=== PATIENT | female | born 1960 | race Caucasian/White ===

== ENCOUNTER → 2023-07-29 12:55 | Outpatient (CLI) | payer OTHER, SELFPAY ==
--- NOTE | 2023-07-29 | DI.MRI.S_ITS ---
PROCEDURE: MR SHOULDER RT WO CON INDICATIONS: ROTATOR CUFF SYNDROM OF RT SHOULDER/RULE OUT TEAR TECHNIQUE: Noncontrast oblique coronal T2 fast spin echo with fat saturation, oblique sagittal T1 spin echo and T2 fast spin echo with fat saturation, axial T1 spin echo and T2 fast spin echo with fat saturation through the shoulder. COMPARISON: [facility], CR, XR SHOULDER 1 VIEW RIGHT, 07/14/2023, 14:06. FINDINGS: Image quality: Degraded by motion artifact. Rotator cuff: Mild T2 signal elevation diffusely throughout the supraspinatus and infraspinatus tendons at the humeral insertion sites extending to the musculotendinous junction, indicating tendinopathy. Superimposed low-grade bursal surface tearing of the mid and posterior supraspinatus as well as the anterior infraspinatus tendons at the humeral insertion sites. High-grade intrasubstance and articular surface tearing of the posterior infraspinatus tendon at the humeral insertion site extending to the musculotendinous junction. Subscapularis and teres minor tendons are intact. No rotator cuff atrophy. Bones and bursae: No bone marrow contusions or fractures. Moderate glenohumeral and acromioclavicular joint degeneration. The acromion demonstrates conventional anatomy, without an os acromiale. No pathologic subacromial-subdeltoid or subcoracoid bursal fluid is present. Capsule and soft tissues: Diffuse degenerative fraying of the glenoid labrum is present. The long head of the biceps tendon demonstrates normal location and morphology. The rotator interval appears normal, without fibrosis. The coracohumeral ligament is normal in thickness. IMPRESSION: 1. Acromioclavicular and glenohumeral joint osteoarthritis. 2. Partial-thickness tearing of the supraspinatus and infraspinatus tendons as described above. 3. Degenerative glenoid labral fraying. Dictated by: Danielle Grossman M.D. on 07/29/2023 at 14:13 Approved by: Danielle Grossman M.D. on 07/29/2023 at 14:15
== END ==
PROVIDERS: Referring Provider Orthopaedic Surgery; Visit Provider Orthopaedic Surgery
DX: M75.111 Incomplete rotator cuff tear or rupture of right shoulder, not specified as traumatic (principal); M19.011 Primary osteoarthritis, right shoulder
CPT/HCPCS: 73221

== ENCOUNTER → 2025-02-05 11:55 | Outpatient (CLI) | payer MEDICARE, OTHER, SELFPAY ==
--- NOTE | 2025-02-05 12:00 | DI.MRI.S_ITS ---
PROCEDURE: MR SHOULDER RT WO CON INDICATIONS: ROTATOR CUFF TEAR OR RUPTURE RT SHOULDER TECHNIQUE: Noncontrast oblique coronal T2 fast spin echo with fat saturation, oblique sagittal T1 spin echo and T2 fast spin echo with fat saturation, axial T1 spin echo and T2 fast spin echo with fat saturation through the shoulder. COMPARISON: [facility], MR, MR SHOULDER RT WO CON, 07/29/2023, 13:17. FINDINGS: Image quality: Excellent. Rotator cuff: Moderate supraspinatus and infraspinatus tendinosis with a few foci of low-grade partial intrasubstance and bursal surface tearing. Previously seen high-grade partial articular sided tearing of the posterior infraspinatus tendon at the distal insertion with fluid tracking back to the myotendinous junction appears less prominent when compared to the prior MRI. No full-thickness tendon tear seen. Teres minor tendon and subscapularis tendon are intact. Rotator cuff musculature is normal in bulk. Bones and bursae: No acute trabecular bone injury or fracture. Chronic traction cystic changes are seen at the posterior superior humeral head. Partial-thickness cartilage irregularity in the glenohumeral joint with small marginal osteophytes. Moderate degenerative changes at the acromioclavicular joint small subchondral cystic changes and marginal osteophytes. Trace fluid in the subacromial/subdeltoid bursa. Small glenohumeral effusion. Capsule and soft tissues: Diffuse labral degeneration. Mild proximal biceps long head tendinosis. Mild partial effacement of fat signal in the rotator interval. Glenohumeral ligaments appear to be intact. IMPRESSION: 1. Focal partial articular sided tearing of the infraspinatus tendon at the posterior insertion extending to the mild tendinous junction, which appears less prominent when compared to the MRI from 07/29/2023. Multiple additional small foci of low-grade partial intrasubstance and bursal sided tearing at the distal supraspinatus and infraspinatus insertion superimposed on moderate tendinosis. No full-thickness rotator cuff tendon tear is seen. 2. Mild proximal biceps long head tendinosis. 3. Moderate glenohumeral osteoarthrosis. 4. Diffuse labral degeneration. Small glenohumeral effusion. 5. Moderate acromioclavicular joint osteoarthrosis. Approved by: Sharif Cuevas M.D. on 02/05/2025 at 14:36
== END ==
PROVIDERS: Referring Provider Preventive Medicine Occupational Medicine; Visit Provider Preventive Medicine Occupational Medicine
DX: M75.101 Unspecified rotator cuff tear or rupture of right shoulder, not specified as traumatic (principal); M19.011 Primary osteoarthritis, right shoulder; M25.411 Effusion, right shoulder
CPT/HCPCS: 73221